=== PATIENT | male | born 1960 | race Two or more races ===

== ENCOUNTER 2019-11-15 13:12 | Emergency (ER) | payer OTHER ==
[~2019-11-15] VITALS: Ht 167.6 cm; Wt 81.6 kg
--- NOTE | 2019-11-15 13:30 | NUR ---
COUGH/SORETHROAT X 3 DAYS. PATIENT A/OX4, BREATHING EVEN AND UNLABORED, NO SOB NOTED. NEEDS ATTENDED.
--- NOTE | 2019-11-15 13:35 | NUR ---
DR. CROWE AT BEDSIDE FOR EVAL
[2019-11-15 14:12] VITALS: BP 148/89
--- NOTE | 2019-11-15 14:12 | NUR ---
Patient with no shortness of breath. Needs attended. Patient discharged to home in stable condition. Written and verbal after care instructions given. Patient verbalizes understanding of instruction.
== END 2019-11-15 14:19 | disposition home or self-care (01) ==
LOC: ER 13:12
DX: J06.9 Acute upper respiratory infection, unspecified (principal); I10 Essential (primary) hypertension; Z60.2 Problems related to living alone
CPT/HCPCS: 71045-TC

== ENCOUNTER 2021-03-05 15:28 | Inpatient (IN) | payer OTHER ==
[~2021-03-05] VITALS: Ht 165.1 cm; Wt 78.9 kg
[2021-03-05] MEDS ORDERED: ASPIRIN 325 MG TABLET ONE (15:45)
--- NOTE | 2021-03-05 15:45 | NUR ---
PRESSURE LIKE CHEST PAIN R/T LUE X 3 DAYS, INTERMITTENT. PATIENT A/OX4, BREATHING EVEN AND UNLABORED, NO SOB NOTED. NEEDS ATTENDED. KEPT COMFORTABLE.
[2021-03-05 15:57] LABS: BASOPHILS # (AUTO) 0.1 K/uL (0.0-0.2); BASOPHILS % (AUTO) 0.7 % (0.0-2.0); EOSINOPHILS % (AUTO) 0.9 % (0.0-6.0); HEMATOCRIT 44 % (39-51); HEMOGLOBIN 15.2 g/dL (13.5-17.5); LYMPHOCYTES # (AUTO) 1.4 K/uL (0.8-4.8); LYMPHOCYTES % (AUTO) 19.6 % (20.0-44.0); MEAN CORPUSCULAR HGB CONC 34 g/dl (31.0-36.0); MEAN CORPUSCULAR VOLUME 87 fL (80-96); MONOCYTES # (AUTO) 0.5 K/uL (0.1-1.30); MONOCYTES % (AUTO) 6.9 % (2.0-12.0); NEUTROPHILS % (AUTO) 71.9 % (43.0-81.0); PLATELET COUNT (AUTO) 190 K/uL (150-450); RED BLOOD CELL COUNT(AUTO) 5.08 MIL/uL (4.5-6.0); WHITE BLOOD COUNT (AUTO) 6.9 K/uL (4.3-11.0)
[2021-03-05] MEDS ORDERED: ASPIRIN 325 MG TABLET PO ONE (16:00)
[2021-03-05 16:18] LABS: ALBUMIN 4.1 g/dL (3.4-5.0); BILIRUBIN,DIRECT 0.1 mg/dL (0.0-0.2); BILIRUBIN,TOTAL 0.4 mg/dL (0.2-1.0); POTASSIUM 3.9 mmol/L (3.5-5.1); TOTAL PROTEIN, SERUM 7.3 g/dL (6.4-8.2)
[2021-03-05 16:27] LABS: CALCIUM, SERUM 8.8 mg/dL (8.5-10.1)
--- NOTE | 2021-03-05 16:43 | NUR ---
COVID SWAB SENT.
--- NOTE | 2021-03-05 17:22 | NUR ---
[facility] CALLED COLOR STRIPPER PAGED.
--- NOTE | 2021-03-05 17:49 | NUR ---
called nursing supervisor cell efficiency for tele bed
[2021-03-05] MEDS ORDERED: HYDROCODONE/APAP 5/325MG TABLET PO PRN (18:00)
[2021-03-05] MEDS ORDERED: NITROGLYCERIN 0.4 MG/TAB BOTTLE SL PRN (18:00)
[2021-03-05] MEDS ORDERED: Z GUARD REMEDY 2 OZ OINT TP PRN (18:00)
[2021-03-05] MEDS ORDERED: ONDANSETRON HCL/PF 4 MG/2 ML VIAL IVP PRN (18:00)
[2021-03-05] MEDS ORDERED: DEXTROSE 50%-WATER 50 ML DISP.SYRIN IV PRN (18:00)
[2021-03-05] MEDS ORDERED: MORPHINE SULFATE INJ 2 MG/ML DISP.SYRIN IV PRN (18:00)
[2021-03-05] MEDS ORDERED: INSULIN REGULAR, HUMAN 100 UNIT/ML 3 ML VIAL SQ PRN (18:00)
[2021-03-05] MEDS ORDERED: ZOLPIDEM TARTRATE 5 MG TABLET PO PRN (18:00)
[2021-03-05] MEDS ORDERED: ACETAMINOPHEN 325 MG TABLET PO PRN (18:00)
[2021-03-05] MEDS ORDERED: MAG HYDROX/AL HYDROX/SIMETH 30 ML UDC PO PRN (18:00)
[2021-03-05] MEDS ORDERED: MAGNESIUM HYDROXIDE 30 ML UDC PO PRN (18:00)
--- NOTE | 2021-03-05 19:08 | NUR ---
REPORT GIVEN TO FIDELIA YI FOR EILEEN.
--- NOTE | 2021-03-05 19:29 | NUR ---
PATIENT TRANSFERRED UNDER ACLS
[2021-03-05 20:00] VITALS: BP 166/99
--- NOTE | 2021-03-05 20:00 | NUR ---
TELE/RN ADMITTING NOTE RECEIVED PATIENT FROM ER VIA [facility] AND 2 STAFF MEMBERS. PATIENT ADMITTED TO ROOM 308-1 WITH ADMITTING DX OF NSTEMI. PMHX INCLUDES DM AND HTN. PATIENT IS ALERT AND ORIENTED X 4. ABLE TO MAKE NEEDS KNOWN. DENIES PAIN AT THIS TIME. CONTINUES ON ROOM AIR WITH NO S/SX OF RESPIRATORY DISTRESS NOTED. IV ACCESS TO LEFT AC #22G INTACT, PATENT AND SALINE LOCKED. TELE MONITOR CURRENTLY READING SR HR 70. PATIENT AMBULATORY WITH STEADY GAIT. SKIN CHECK PERFORMED ON ADMISSION WITH NO SKIN ISSUES NOTED. ALL HOME MEDS RECORDED AND IMPUTED. PATIENT ORIENTED TO CALL LIGHT, ROOM AND UNIT. CALL LIGHT WITHIN REACH. ASPIRATION, FALL AND SAFETY PRECAUTIONS MAINTAINED. WILL CONTINUE TO MONITOR.
[2021-03-05 20:30] VITALS: BP 147/88
[2021-03-05] MEDS ORDERED: BENA20TA9 PO (20:43)
[2021-03-05] MEDS ORDERED: GLIP5TAB13 PO (20:43)
[2021-03-05] MEDS ORDERED: METF-440 PO (20:43)
[2021-03-05] MEDS ORDERED: ALOG25TA2 PO (20:43)
--- NOTE | 2021-03-05 21:00 | NUR ---
TELE/RN NOTE PATIENT WITH C/O PAIN TO LEFT CHEST 01/30. NO C/O SOB, N/V OR DIZZINESS. NO RADIATING PAIN NOTED. ADMINISTERED PRN NORCO WITH PENDING EFFECT.
[2021-03-05] MEDS: BLOOD SUGAR DIAGNOSTIC 1 EACH STRIP IN SCH (23:10)
[2021-03-05] MEDS: SIMVASTATIN 20 MG TABLET PO SCH (23:11)
[2021-03-06] VITALS (18 sets, daily range): BP systolic 111–162; BP diastolic 67–122
--- NOTE | 2021-03-06 00:40 | NUR ---
TELE/RN NOTE RECEIVED CALL FROM LAB WITH CRITICAL LAB VALUE TROPONIN 1.065. PATIENT DENIES CHEST PAIN AT THIS TIME. NO S/SX OF SOB, N/V OR DIZZINESS. VS: BP 136/79 HR 67 RR 18 T 97.5 O2 SAT 98% ROOM AIR. NOTIFIED ON-CALL MD AND AWAITING ORDERS FROM MACHINE LOADER AJ WELSH.
--- NOTE | 2021-03-06 01:00 | NUR ---
TELE/RN NOTE AJ WELSH ORDERED HEPARIN DRIP FOR ACS. ORDER INPUTTED AND CARRIED OUT.
[2021-03-06] MEDS ORDERED: HEPARIN INFUSION/D5W 500 ML IV PRN (01:30)
[2021-03-06] MEDS ORDERED: HEPARIN SODIUM, PORCINE 5000 UNITS/1 ML VIAL IV ONE ×2 (01:30→01:50)
[2021-03-06] MEDS ORDERED: HEPARIN INFUSION/D5W 500 ML IV ONE (02:53)
--- NOTE | 2021-03-06 03:23 | NUR ---
TELE/RN NOTE PATIENT CONTINUES ON HEPARIN DRIP PER PROTOCOL WITH NO S/SX OF BLEEDING NOTED. NO C/O PAIN, CHEST PAIN, RADIATING PAIN, SOB OR DIZZINESS NOTED. WILL CONTINUE TO MONITOR.
[2021-03-06 06:18] LABS: BASOPHILS # (AUTO) 0.1 K/uL (0.0-0.2); BASOPHILS % (AUTO) 0.7 % (0.0-2.0); EOSINOPHILS % (AUTO) 1.6 % (0.0-6.0); HEMATOCRIT 43 % (39-51); HEMOGLOBIN 14.6 g/dL (13.5-17.5); LYMPHOCYTES # (AUTO) 2.1 K/uL (0.8-4.8); LYMPHOCYTES % (AUTO) 28.9 % (20.0-44.0); MEAN CORPUSCULAR HGB CONC 34 g/dl (31.0-36.0); MEAN CORPUSCULAR VOLUME 88 fL (80-96); MONOCYTES # (AUTO) 0.7 K/uL (0.1-1.30); MONOCYTES % (AUTO) 8.9 % (2.0-12.0); NEUTROPHILS # (AUTO) 4.4 K/uL (1.8-8.9); NEUTROPHILS % (AUTO) 59.9 % (43.0-81.0); PLATELET COUNT (AUTO) 162 K/uL (150-450); RED BLOOD CELL COUNT(AUTO) 4.83 MIL/uL (4.5-6.0); WHITE BLOOD COUNT (AUTO) 7.4 K/uL (4.3-11.0)
[2021-03-06] MEDS: BLOOD SUGAR DIAGNOSTIC 1 EACH STRIP IN SCH ×4 (06:34→21:32)
--- NOTE | 2021-03-06 06:37 | NUR ---
TELE/RN NOTE PATIENT WITH C/O HEADACHE 10/30. ADMINISTERED PRN TYLENOL WITH PENDING EFFECT.
--- NOTE | 2021-03-06 06:41 | NUR ---
TELE/RN CLOSING NOTE PATIENT CURRENTLY RESTING IN BED. AWAKE, ALERT AND ORIENTED X 4. ABLE TO MAKE NEEDS KNOWN. CONTINUES ON ROOM AIR WITH NO S/SX OF RESPIRATORY DISTRESS NOTED. IV ACCESS TO LEFT AC #22G INTACT AND PATENT. CONTINUES ON HEPARIN DRIP RUNNING AT 1,095UNITS/HR (21.9ML/HR). NEXT PTT SCHEDULED FOR 0900. NO S/SX OF BLEEDING NOTED. BLOOD GLUCOSE THIS AM IS 111. DENIES CHEST PAIN AT THIS TIME. CALL LIGHT WITHIN REACH. ASPIRATION, FALL AND SAFETY PRECAUTIONS MAINTAINED. WILL ENDORSE PLAN OF CARE TO ONCOMING SHIFT.
[2021-03-06 07:10] LABS: THYROID STIMULATING HORMONE 4.113 uIU/mL (0.358-3.74)
[2021-03-06 07:24] LABS: CALCIUM, SERUM 8.8 mg/dL (8.5-10.1); PHOSPHORUS 3.8 mg/dL (2.5-4.9); POTASSIUM 3.9 mmol/L (3.5-5.1)
--- NOTE | 2021-03-06 07:33 | NUR ---
RN OPENING NOTE PT ASLEEP IN BED. AROUSES TO LIGHT TOUCH. ON RA WITH NO SOB OR RESPIRATORY DISTRESS PRESENT. PT IS A/O X4 AND UNDERSTANDS GUAMANIAN. NO COMPLAINT OF PAIN OR NAUSEA PRESENT. ON RN FAMILY. NO EDEMA PRESENT. PT IS SELF AMBULATORY WITH BATHROOM PRIVILEGES. SKIN IS INTACT. IV PRESENT ON L AC 22G AND FLUSHES WELL. HEPARIN DRIP RUNNING. PTT AT 0900 ORDERED. LABS AND ORDERS REVIEWED. SAFETY MEASURES IN PLACE. SIDE RAILS RAISED. BED LOWERED. CALL LIGHT WITHIN REACH. WILL CONTINUE TO MONITOR.
[2021-03-06] MEDS: glipiZIDE 5 MG TABLET PO SCH ×2 (08:52→16:59)
[2021-03-06] MEDS: ASPIRIN 81 MG TAB.CHEW PO SCH ×2 (08:52→08:54)
[2021-03-06] MEDS: METOPROLOL TARTRATE 50 MG TABLET PO SCH ×2 (08:53→21:23)
[2021-03-06] MEDS: BENAZEPRIL HCL 20 MG TABLET PO SCH (08:53)
[2021-03-06] MEDS ORDERED: ENOXAPARIN SODIUM 80 MG/0.8 ML DISP.SYRIN SQ SCH (09:00)
[2021-03-06] MEDS ORDERED: IV NS 0.9% 1,000 ML IV PRN (09:00)
[2021-03-06] MEDS: PANTOPRAZOLE 40 MG TABLET.DR PO SCH (09:01)
[2021-03-06] MEDS ORDERED: IV NS 0.9% 1,000 ML ONE (09:22)
[2021-03-06] MEDS ORDERED: IODIXANOL 150 ML IV ONE (09:23)
[2021-03-06] MEDS ORDERED: LIDOCAINE HCL/MPF 1% 30 ML VIAL IJ ONE (11:03)
[2021-03-06] MEDS ORDERED: VERAPAMIL HCL IV 5 MG/2 ML VIAL ONE (11:03)
[2021-03-06] MEDS ORDERED: HEPARIN SODIUM, PORCINE 1,000 UNIT/ML VIAL ONE ×2 (11:03→12:44)
[2021-03-06] MEDS ORDERED: NITROGLYCERIN IN 5 % DEXTROSE 250 ML IV ONE (11:04)
[2021-03-06] MEDS: LINAGLIPTIN 5 MG TABLET PO SCH (12:08)
[2021-03-06] MEDS ORDERED: FENTANYL PF 100MCG/2ML AMPUL ONE (12:39)
[2021-03-06] MEDS ORDERED: MIDAZOLAM HCL 2 MG/2ML VIAL ONE (12:40)
[2021-03-06] MEDS ORDERED: IODIXANOL 320MG/ML 50 ML IV ONE (13:18)
[2021-03-06] MEDS ORDERED: BIVALIRUDIN 250 MG/VIAL IV ONE (13:19)
[2021-03-06] MEDS ORDERED: TICAGRELOR 90 MG TABLET PO ONE (13:25)
--- NOTE | 2021-03-06 14:15 | NUR ---
RN RECEIVING NOTES RECEIVED REPORT FROM [facility] NURSE TOMLIN AND LATER ON, KASSIDY ABDALLA FOR CONTINUITY OF CARE. PATIENT IS A&O X4. NOT IN ANY DISTRESS AND SATURATING WELL ON RA. SR ON BEDSIDE MONITOR. T-BAND RIGHT WRIST IN PLACE. PERIPHERAL LINE LEFT AC. NO COMPLAINS OF PAIN. SAFETY CHECKS IN PLACE. WILL CONTINUE TO MONITOR.
--- NOTE | 2021-03-06 14:37 | NUR ---
SALES AND IN HOME DELIVERY SPECIALIST NOTE PT TRANSFERRED OVER TO BED 254-1. PT IN STABLE CONDITION. REPORT GIVEN TO KASSIDY GARCIA FOR EILEEN.
[2021-03-06] MEDS ORDERED: IV NS 0.9% 1,000 ML IV SCH (16:30)
--- NOTE | 2021-03-06 17:45 | NUR ---
RN NOTE TR-BAND REMOVED COMPLETELY AFTER CONSECUTIVE WITHDRAWAL OF 3ML OF AIR EVERY 15MINUTES. NO BLEEDING, NO HEMATOMA, NO SWELLING. TRANSPARENT DRESSING APPLIED.
--- NOTE | 2021-03-06 18:00 | NUR ---
RN NOTE PATIENT'S DAUGHTER PAID VISIT AND UPDATED HER OF WHAT WAS DONE TO THE PATIENT.
--- NOTE | 2021-03-06 18:46 | NUR ---
RN NOTE PATIENT REMAINS A&0 X4, NOT IN ANY DISTRESS. SATURATING 98% ON RA, AND SR ON BEDSIDE MONITOR. N/S AT 100ML/HR AT RIGHT AC TO FINISH AT 1930HRS. VOIDING IN A URINAL. EATING AND DRINKING WELL. NO BLEEDING NOTED AT TR-BAND SITE, DRESSING DRY AND INTACT. SAFETY CHECKS IN PLACE. WILL CONTINUE TO MONITOR.
--- NOTE | 2021-03-06 19:20 | NUR ---
REGROOVER OPENING NOTES: RECEIVED PT A/OX4 IN BED RESTING COMFORTABLY. PATIENT IN NO S/SX OF ACUTE DISTRESS AT THIS TIME. NO SOB NOTED. PATIENT'S BREATHING IS EVEN AND UNLABORED. PATIENT IS ON ROOM AIR ; TOLERATING WELL WITH 02 SAT AT 97%. PATIENT ON TELE MONITORING READING SINUS RHYTHM HR IS @70s AT THE TIME OF RECEIVED. PATIENT ON CARDIAC DIET; TOLERATES WELL. NOTED IV SITE ON L AC #22 ; PATENT, INTACT AND FLUSHING WELL; NO S/S OF INFECTION OR INFILTRATION. URINAL @ BEDSIDE. SAFETY MEASURES HAVE BEEN PROVIDED AND IMPLEMENTED. PATIENT BED ALARM IS ON. HEAD OF BED ELEVATED. BED IS LOCKED, IN LOWEST POSITION AND SIDE RAILS UP. CALL LIGHT WITHIN REACH OF THE PATIENT. APPLICABLE ISOLATION PRECAUTIONS IN PLACE. WILL CONTINUE TO MONITOR AND REASSESS FOR ANY CHANGES AND WILL CARRY OUT ANY ONGOING AND ACTIVE MD ORDER.
[2021-03-06] MEDS ORDERED: hydrALAZINE HCL IV 20 MG VIAL IV PRN (19:30)
--- NOTE | 2021-03-06 19:30 | NUR ---
RN NOTES NOTED PT' BLOOD PRESSURE >160 SYSTOLIC ; SENIOR RESEARCH MANAGER MADE AWARE. ONCKI WADDELL MADE AWARE. SECURED FOR ORDER; APRESOLINE IV 10MG/0.5ML Q4H PRN SBP >160. WILL CARRY OUT ORDERED.
--- NOTE | 2021-03-06 20:20 | NUR ---
RN NOTES @2009 PT VERBALZIED MILD CHEST PAIN; NITROGLYCERIN L GIVEN PRN. AFTER SEVERAL MINS PT VERBALIZED FEELING COLD AND SWEATY, UPON ASSESSMENT PATIENT NOTED TO BE SWEATY AND ANXIOUS; NO CHEST PAIN NOTED AT THIS TIME. BLOOD SUGAR CHECK DONE; RESULT CAME OUT 118MG/DL. V/S WNL BP IS AT 125/85.WAS RELIVE AND FELT BETTER. RODERICK YI MADE AWARE. Addendum: 03/07/21 at 0728 by SUSANNAH DEAL RN ENDORSED INFO TO PHARMACY S/W [facility] WHO MENTIONED THAT PT MIGHT HAVE ADVERSE REACTION FROM NITRO AND JUST ENDORSE IT TO THE CARDIO WHO'S FOLLOWING UP WITH THE PT. RODERICK YI MADE AWARE AND AM SHIFT RN.
[2021-03-06] MEDS: SIMVASTATIN 20 MG TABLET PO SCH (21:23)
--- NOTE | 2021-03-06 23:00 | NUR ---
RN NOTES NO CHANGE IN PATIENT CONDITION AT THIS TIME PATIENT VITALS STABLE, NO SIGNS OF ACUTE RESPIRATORY DISTRESS. FOUNDRY PROCESS ENGINEER MADE AWARE. WILL CONTINUE TO MONITOR AND REASSESS FOR ANY CHANGES THROUGHOUT THE SHIFT.
[2021-03-07] VITALS (21 sets, daily range): BP systolic 103–170; BP diastolic 54–95
[2021-03-07] MEDS: TICAGRELOR 90 MG TABLET PO SCH ×2 (00:16→08:08)
--- NOTE | 2021-03-07 04:00 | NUR ---
RN NOTES NO NOTED CHANGES IN PATIENT CONDITION AT THIS TIME; PATIENT VITALS STABLE, NO SIGNS OF ACUTE RESPIRATORY DISTRESS. AM PATIENT CARE RENDERED. SLITTER PROCESSED FILM MADE AWARE. WILL CONTINUE TO MONITOR AND REASSESS FOR ANY CHANGES THROUGHOUT THE SHIFT.
[2021-03-07 04:22] LABS: BASOPHILS # (AUTO) 0.1 K/uL (0.0-0.2); BASOPHILS % (AUTO) 1.2 % (0.0-2.0); EOSINOPHILS % (AUTO) 1.2 % (0.0-6.0); HEMATOCRIT 43 % (39-51); HEMOGLOBIN 14.7 g/dL (13.5-17.5); LYMPHOCYTES # (AUTO) 1.6 K/uL (0.8-4.8); LYMPHOCYTES % (AUTO) 18.7 % (20.0-44.0); MEAN CORPUSCULAR HGB CONC 34 g/dl (31.0-36.0); MEAN CORPUSCULAR VOLUME 88 fL (80-96); MONOCYTES # (AUTO) 0.7 K/uL (0.1-1.30); MONOCYTES % (AUTO) 8.6 % (2.0-12.0); NEUTROPHILS # (AUTO) 6.1 K/uL (1.8-8.9); NEUTROPHILS % (AUTO) 70.3 % (43.0-81.0); PLATELET COUNT (AUTO) 181 K/uL (150-450); RED BLOOD CELL COUNT(AUTO) 4.93 MIL/uL (4.5-6.0); WHITE BLOOD COUNT (AUTO) 8.7 K/uL (4.3-11.0)
[2021-03-07 04:47] LABS: ALBUMIN 3.5 g/dL (3.4-5.0); BILIRUBIN,TOTAL 0.4 mg/dL (0.2-1.0); CALCIUM, SERUM 9.1 mg/dL (8.5-10.1); MAGNESIUM 2.1 mg/dL (1.8-2.4); TOTAL PROTEIN, SERUM 6.7 g/dL (6.4-8.2)
--- NOTE | 2021-03-07 05:04 | NUR ---
RN NOTES RECEIVED CALL FROM LAB; S/W MOISES. CRITICAL LAB RESULT FOR TROPONIN @0.676. WILL INFORM CARLOTA WADDELL.HEAD NECK SURGEON MADE AWARE. COMMUNICATED WITH CARLOTA WADDELL REGARDING TROPONIN RESULT. NO NEW ORDERS GIVEN. HEAD NECK SURGEON MADE AWARE.
--- NOTE | 2021-03-07 07:16 | NUR ---
RN CLOSING NOTE: PATIENT REMAINS IN ROOM IN NO SIGNS OF RESPIRATORY DISTRESS, PATIENT STILL ON ROOM AIR ;TOLERATING WELL SATURATING @ >95% SP02. SAFETY MEASURES IMPLEMENTED, BED IN LOWEST POSITION, LOCKED, SIDE RAILS UP, CALL LIGHT WITHIN REACH. ALL NEEDS AND ORDERS ADDRESSED DURING THE SHIFT. IV ACCESS MAINTAINED INTACT, SECURED AND FLUSHING WELL. ALL DUE MEDS GIVEN ORDERED & SCHEDULED ; PATIENT TOLERATED WELL. PATIENT KEPT CLEAN AND COMFORTABLE WITHIN THE SHIFT. PATIENT ENDORSED TO INCOMING SHIFT RN WITH STABLE VITAL SIGN AND FOR CONTINUITY OF CARE.
--- NOTE | 2021-03-07 07:35 | NUR ---
ICU/RN PT IS AWAKE,ALERT ,AMBULATING IN THE ROOM .V/S STABLE,AFEBRILE.NO PAIN REPORTED AT THIS TIME.SAT O2-98% ON ROOM AIR.PT IS POST STENT PLACEMENT 03/06/21.NO S/S OF BLEEDING. LEFT AC -HL.SKIN INTACT.PT USE URINAL.LABS REVIEW. AWARE.
[2021-03-07] MEDS: BLOOD SUGAR DIAGNOSTIC 1 EACH STRIP IN SCH ×2 (08:01→11:51)
[2021-03-07] MEDS: ASPIRIN 81 MG TAB.CHEW PO SCH (08:06)
[2021-03-07] MEDS: BENAZEPRIL HCL 20 MG TABLET PO SCH (08:07)
[2021-03-07] MEDS: glipiZIDE 5 MG TABLET PO SCH (08:07)
[2021-03-07] MEDS: PANTOPRAZOLE 40 MG TABLET.DR PO SCH (08:07)
[2021-03-07] MEDS: LINAGLIPTIN 5 MG TABLET PO SCH (08:07)
[2021-03-07] MEDS: METOPROLOL TARTRATE 50 MG TABLET PO SCH (08:08)
[2021-03-07] MEDS ORDERED: TICAGRELOR 90 MG TABLET PO SCH (09:00)
[2021-03-07] MEDS ORDERED: AMLODIPINE BESYLATE 5 MG TABLET PO SCH (09:00)
--- NOTE | 2021-03-07 09:00 | NUR ---
ICU/RN DUE MEDS ARE GIVEN ORDERED.PT EATS 100% FROM HIS MEAL TRAY. WAITING FOR DISCHARGE.
--- NOTE | 2021-03-07 13:20 | NUR ---
ICU/RN PT D/C HOME .V/S STABLE,AFEBRILE.NO PAIN REPORTED.IV -D/C. LEFT ON PRIVATE CARE WITH THE FAMILY.
[2021-03-07] MEDS ORDERED: BENAZEPRIL HCL 20 MG TABLET PO SCH (17:00)
[2021-03-07] MEDS ORDERED: CARVEDILOL 12.5 MG TABLET PO SCH (21:00)
== END 2021-03-07 13:15 | disposition home or self-care (01) | DRG 174 ==
LOC: ER 15:28 → TELE 19:12 → ICU 03-06 13:54
PROC: 027034Z Dilation of Coronary Artery, One Artery with Drug-eluting Intraluminal Device, Percutaneous Approach (ICD-10-PCS; principal; 2021-03-06)
PROC: 4A023N7 Measurement of Cardiac Sampling and Pressure, Left Heart, Percutaneous Approach (ICD-10-PCS; 2021-03-06)
PROC: B211YZZ Fluoroscopy of Multiple Coronary Arteries using Other Contrast (ICD-10-PCS; 2021-03-06)
PROC: B215YZZ Fluoroscopy of Left Heart using Other Contrast (ICD-10-PCS; 2021-03-06)
DX: I21.4 Non-ST elevation (NSTEMI) myocardial infarction (principal); E11.9 Type 2 diabetes mellitus without complications; I10 Essential (primary) hypertension; E66.9 Obesity, unspecified; E78.5 Hyperlipidemia, unspecified; Z20.822 Contact with and (suspected) exposure to COVID-19
CPT/HCPCS: 36415; 71045-TC; 80048-TC; 80053-TC; 80061-TC; 80076-TC; 82962-TC; 83735-TC; 83880; 84100-TC; 84439-TC; 84443-TC; 84484-TC; 85025-TC; 85378-TC; 85610-TC; 85730-TC; 87081-TC; 92980; 93307-TC; C1725; C1887; C9803; G0378; G0500; J0360; J1644; J1650; J1815; J2250; J2405; J3010; J3490; J7030; Q9967